=== PATIENT | male | born 1940 ===

== ENCOUNTER 2017-08-16 11:47 | Inpatient (IN) | payer MEDICARE, BC ==
--- NOTE | 2017-08-16 12:24 | ED PDOC ---
Arrival/HPI - General Chief Complaint: Altered Mental Status Time Seen by Provider: 08/16/17 12:01 Historian: Patient - History of Present Illness Narrative History of Present Illness (Text): 08/16/17 12:24 A 76 year old male whose past medical history includes, hypertension, hyperlipidemia, pacemaker, quadruple bypass / CABG, and diabetes, presents to the emergency department via ems after being found by police to be driving erratically. The patient's daughter states that they arrived from a trip to [facility] last night. She notes that the patient was complaining of chills. He notes that he has a history of urinary frequency. The patient denies headache, dizziness, abdominal pain, nausea, vomiting, diarrhea, back pain, neck pain, chest pain, shortness of breath, dyspnea on exertion, cough or any other complaint. PMD: Dr. George Zambrano MD Time/Duration: Prior to Arrival Symptom Onset: Sudden Symptom Course: Unchanged Activities at Onset: Rest, Light Context: Street, Quarantine Inspector Past Medical History - Provider Review Nursing Documentation Reviewed: Yes - Infectious Disease Hx of Infectious Diseases: None - Cardiac Hx Hypertension: Yes Hx Pacemaker: Yes Other/Comment: open heart - Psychiatric Hx Substance Use: No - Surgical History Hx Open Heart Surgery: Yes - Anesthesia Hx Anesthesia: No Family/Social History - Physician Review Nursing Documentation Reviewed: Yes Family/Social History: No Known Family HX Smoking Status: Unknown If Ever Smoked Hx Alcohol Use: No Hx Substance Use: No Allergies/Home Meds Allergies/Adverse Reactions: Allergies No Known Allergies Allergy (Verified 08/16/17 11:57) Home Medications: Home Meds Medication Instructions Recorded Confirmed Unobtainable 08/16/17 08/16/17 Review of Systems - Physician Review All systems were reviewed & negative as marked: Yes - Review of Systems Constitutional: Other (chills) Respiratory: absent: SOB, Cough Cardiovascular: absent: Chest Pain, Syncope Gastrointestinal: absent: Abdominal Pain, Diarrhea, Nausea, Vomiting Genitourinary Male: Frequency (chronic) Musculoskeletal: absent: Back Pain, Neck Pain Neurological: absent: Headache, Dizziness Physical Exam Vital Signs Reviewed: Yes Vital Signs Temp Pulse Resp BP Pulse Ox 08/16/17 12:25 98.9 F 60 18 110/55 L 100 08/16/17 12:20 104 F H 08/16/17 12:02 100.8 F H 72 18 196/99 H 95 09/16/17 11:53 100.8 F H 72 20 196/99 H 95 08/16/17 11:47 104.0 F H 70 18 196/99 H 100 Temperature: Afebrile Blood Pressure: Normal Pulse: Regular Respiratory Rate: Normal Appearance: Positive for: Well-Appearing, Non-Toxic, Comfortable Pain Distress: None Mental Status: Positive for: other (Alert and ortiented to person, place, partially to time.) Finger Stick Blood Glucose: 186 - Systems Exam Head: Present: Atraumatic, Normocephalic Pupils: Present: PERRL Extroacular Muscles: Present: EOMI Conjunctiva: Present: Normal Mouth: Present: Moist Mucous Membranes Pharnyx: Present: Normal. No: ERYTHEMA, EXUDATE Neck: Present: Normal Range of Motion Respiratory/Chest: Present: Clear to Auscultation, Good Air Exchange, Other ( sternotomy scar on chest). No: Respiratory Distress, Accessory Muscle Use Cardiovascular: Present: Murmurs Abdomen: Present: Normal Bowel Sounds. No: Tenderness, Distention, Peritoneal Signs Back: Present: Normal Inspection Upper Extremity: Present: Normal Inspection. No: Cyanosis, Edema Lower Extremity: Present: Normal Inspection. No: Edema Neurological: Present: GCS=15, CN II-XII Intact, Speech Normal Skin: Present: Warm, Dry, Normal Color. No: Rashes Psychiatric: Present: Alert, Other (Oriented to person, place, partially to time ) Medical Decision Making ED Course and Treatment: 08/16/17 12:47 Impression: A 76 year old male brought in via EMS for evaluation after the police found him driving erratically Plan: -- Brain CT -- EKG -- Chest X-Ray -- Labs -- Blood/Urine Cultures -- Urinalysis -- IV Fluids -- Reassess and disposition Progress Notes: EKG: V-paced at 83; LBBB pattern, left axis deviation. CT HEAD WITHOUT CONTRAST. Dictator : Eriberto De La Cruz MD Report Date : 08/16/2017 13:11:59 IMPRESSION: No acute intracranial hemorrhage. Mild chronic white matter ischemic changes with a few scattered chronic bilateral basal nuclei lacunar type infarcts suspected. Moderate generalized volume loss. See above discussion for additional in details and findings. 08/16/17 14:52 Patient with noted history, found to have temp of 104 here in the ED. His BP was high but never low. Total WBC is 8.4K but 9% bandemia. VBG shows elevated lactic acid; code sepsis called; patient given appropriate IVF by sepsis protocol and emperic antibiotics treatment for sepsis. CXR with no infiltrate. Urine shows blood, so will obtain CT a/p. Patient will need to be admitted, given sepsis. 08/16/17 14:56 His stated PMD is Dr. George Zambrano. Case was discussed with Dr. Hawk Zambrano for admission on his service. - Lab Interpretations Lab Results: 08/16/17 13:08 08/16/17 13:08 Lab Results 08/16/17 14:00: Influenza Typ A,B (EIA) Negative for flu a/b 08/16/17 13:08: Alcohol, Quantitative < 10 08/16/17 13:08: Sodium 134, Chloride 97 L, Potassium 3.6, Carbon Dioxide 23, Anion Gap 18, BUN 38 H, Creatinine 1.2, Est GFR ( Amer) > 60, Est GFR ( Non-Af Amer) 59, Random Glucose 175 H, Calcium 9.2, Phosphorus 2.6, Magnesium 2.1, Total Bilirubin 2.1 H, Direct Bilirubin 0.5 H, AST 92 H, ALT 81 H, Alkaline Phosphatase 69, Lactate Dehydrogenase 658, Total Creatine Kinase 134, Troponin I 0.12, NT-Pro-B Natriuret Pep 3070 H, Total Protein 7.3, Albumin 4.2, Globulin 3.1, Albumin/Globulin Ratio 1.4, Lipase 69 08/16/17 13:08: pO2 33, VBG pH 7.42, VBG pCO2 36.0 L, VBG HCO3 23.4, VBG Total CO2 24.5, VBG O2 Sat (Calc) 68.3 H, VBG Base Excess -0.7 L, VBG Potassium 3.7, Sodium 131.0 L, Chloride 97.0 L, Glucose 186 H, Lactate 3.2 H, FiO2 21.0, Venous Blood Potassium 3.7 08/16/17 13:08: PT 13.8 H, INR 1.28 H, APTT 29.6 08/16/17 13:08: WBC 8.4, RBC 4.95, Hgb 15.1, Hct 43.9, MCV 88.7, MCH 30.5, MCHC 34.4, RDW 14.0, Plt Count 110 L, MPV 9.9, Gran % 94.6 H, Lymph % (Auto) 2.6 L, [place] % (Auto) 2.7, Eos % (Auto) 0.0 L, Baso % (Auto) 0.1, Gran # 7.95 H, Lymph # 0.2 L, [place] # 0.2, Eos # 0.0, Baso # 0.01, Neutrophils % (Manual) 84 H, Band Neutrophils % 9 H, Lymphocytes % (Manual) 4 L, Monocytes % (Manual) 3, ESR 18 H 08/16/17 12:30: Urine Color Yellow, Urine Appearance Clear, Urine pH 6.0, Ur Specific [place] 1.025, Urine Protein >=300 H, Urine Glucose (UA) Negative, Urine Ketones Negative, Urine Blood Large H, Urine Nitrate Negative, Urine Bilirubin Negative, Urine Urobilinogen 1.0 H, Ur Leukocyte Esterase Negative, Urine RBC 5 - 10, Urine WBC 0 - 2, Ur Epithelial Cells 0 - 2, Urine Bacteria Few I have reviewed the lab results: Yes - RAD Interpretation Radiology Orders: 08/16/17 12:25 CHEST PORTABLE [RAD] Stat 08/16/17 12:26 Brain [HEAD W/O CONTRAST] [CT] Stat 08/16/17 14:20 ABD & PELVIS W/O PO OR IV CONT [CT] Stat - EKG Interpretation Interpreted by ED Physician: Yes Type: 12 lead EKG - Medication Orders Current Medication Orders: Vancomycin HCl 1 gm/ Sodium (Chloride) 250 mls @ 133.333 mls/hr IV STAT STA PRN Reason: Protocol Stop: 08/16/17 15:24 Last Admin: 08/16/17 14:30 Dose: 133.333 mls/hr Discontinued Medications Acetaminophen (Tylenol 325mg Tab) Confirm Administered Dose 975 mg .ROUTE .STK- MED ONE Stop: 08/16/17 12:15 Last Admin: 08/16/17 12:20 Dose: 975 mg Sodium Chloride (Sodium Chloride 0.9%) 1,000 mls @ 999 mls/hr IV .Q1H1M STA Stop: 08/16/17 13:26 Last Admin: 08/16/17 13:36 Dose: 999 mls/hr Sodium Chloride (Sodium Chloride 0.9%) 1,500 mls @ 1,500 mls/hr IV .Q1H STA Stop: 08/16/17 14:31 Last Admin: 08/16/17 14:03 Dose: 1,500 mls/hr Piperacillin Sod/Tazobactam Sod (Zosyn 3.375 In Ns 100ml) 100 mls @ 200 mls/hr IVPB STAT STA PRN Reason: Protocol Stop: 08/16/17 14:01 Last Admin: 08/16/17 13:53 Dose: 200 mls/hr - Scribe Statement The provider has reviewed the documentation as recorded by the Scribe Mamie Saxena Provider Scribe Attestation: All medical record entries made by the Scribe were at my direction and personally dictated by me. I have reviewed the chart and agree that the record accurately reflects my personal performance of the history, physical exam, medical decision making, and the department course for this patient. I have also personally directed, reviewed, and agree with the discharge instructions and disposition Disposition/Present on Arrival - Present on Arrival Any Indicators Present on Arrival: No History of DVT/PE: No History of Uncontrolled Diabetes: No Urinary Catheter: No History of Decub. Ulcer: No History Surgical Site Infection Following: None - Disposition Have Diagnosis and Disposition been Completed?: Yes Diagnosis: Sepsis Disposition: HOSPITALIZED Disposition Time: 14:00 Patient Plan: Admission Condition: SERIOUS Discharge Instructions (ExitCare): Sepsis (ED) Referrals: George Zambrano MD [Primary Care Provider] - Follow up with primary Forms: [employer] (Greek)
[2017-08-16] MEDS ORDERED: Sodium Chloride 0.9% 1,000 ML IV STA (12:26)
--- NOTE | 2017-08-16 13:13 | CT ---
PROCEDURE: CT HEAD WITHOUT CONTRAST. HISTORY: alt ms COMPARISON: None available. TECHNIQUE: Axial computed tomography images were obtained through the head/brain without intravenous contrast. Radiation dose: Total exam DLP = 725.84 mGy-cm. This CT exam was performed using one or more of the following dose reduction techniques: Automated exposure control, adjustment of the mA and/or kV according to patient size, and/or use of iterative reconstruction technique. FINDINGS: HEMORRHAGE: No acute parenchymal, subarachnoid or extra-axial hemorrhage. BRAIN: Mild chronic white matter ischemic changes. . . Questionable few tiny chronic bilateral basal nuclei lacunar type infarcts. Vascular calcifications both carotid siphons. Moderate central volume loss. VENTRICLES: No obstructive hydrocephalus. CALVARIUM: No acute calvarial fractures PARANASAL SINUSES: Mild mucoperiosteal inflammatory changes within the ethmoid air complex and to a lesser degree sphenoid sinus. There is also minimal mucosal thickening both maxillary antra right greater than left the. MASTOID AIR CELLS: Unremarkable as visualized. No inflammatory changes. OTHER FINDINGS: None. IMPRESSION: No acute intracranial hemorrhage. Mild chronic white matter ischemic changes with a few scattered chronic bilateral basal nuclei lacunar type infarcts suspected. Moderate generalized volume loss. See above discussion for additional in details and findings.
[2017-08-16 13:27] LABS: BASO # 0.01 K/mm3 (0.0-2.0); BASO % 0.1 % (0.0-3.0); GRAN # 7.95 (1.4-6.5); GRAN % 94.6 % (50.0-68.0); HEMATOCRIT 43.9 % (42.0-52.0); LYMPH # 0.2 (1.2-3.4); LYMPH % 2.6 % (22.0-35.0); MEAN CELL VOLUME 88.7 fl (80.0-105.0); MEAN CORPUSCULAR HEMOGLOBIN 30.5 pg (25.0-35.0); MEAN CORPUSCULAR HGB CONC 34.4 g/dl (31.0-37.0); MEAN PLATELET VOLUME 9.9 fl (7.0-11.0); MONO # 0.2 (0.1-0.6); MONO % 2.7 % (1.0-6.0); PLATELET COUNT 110 10^3/uL (120.0-450.0); WHITE BLOOD COUNT 8.4 10^3/ul (4.5-11.0)
[2017-08-16 13:29] LABS: VENOUS BLOOD GAS BASE EXCESS -0.7 mmol/L (0.0-2.0); VENOUS BLOOD PH 7.42 (7.32-7.43)
[2017-08-16 13:32] LABS: INR 1.28 (0.93-1.08); PARTIAL THROMBOPLASTIN TIME 29.6 Seconds (23.7-30.8)
[2017-08-16] MEDS ORDERED: Piperacillin/Tazobact 3.375 gm 100 ML IVPB STA (13:32)
[2017-08-16] MEDS ORDERED: Sodium Chloride 0.9% 1,500 ML IV STA (13:32)
[2017-08-16 13:38] LABS: ALB/GLOB RATIO 1.4 (1.1-1.8); ALKALINE PHOSPHATASE 69 U/L (38-126); ALT/SGPT 81 U/L (7-56); AST/SGOT 92 U/L (17-59); BILIRUBIN,DIRECT 0.5 mg/dL (0.0-0.4); BILIRUBIN,TOTAL 2.1 mg/dL (0.2-1.3); BLOOD UREA NITROGEN 38 mg/dL (7-21); CALCIUM 9.2 mg/dL (8.4-10.5); CARBON DIOXIDE 23 mmol/L (21-33); CHLORIDE 97 mmol/L (98-107); GFR AFRICAN-AMERICAN > 60; GLUCOSE,RANDOM 175 mg/dL (70-110); LIPASE 69 U/L (23-300); MAGNESIUM 2.1 mg/dL (1.7-2.2); PHOSPHOROUS 2.6 mg/dL (2.5-4.5); POTASSIUM 3.6 mmol/L (3.6-5.0); SODIUM 134 mmol/L (132-148); TOTAL PROTEIN 7.3 g/dL (5.8-8.3)
[2017-08-16 14:01] LABS: BAND 9 % (0-2); NEUTROPHIL 84 % (50.0-70.0)
[2017-08-16 14:07] LABS: URINE APPEARANCE CLEAR (CLEAR); URINE BILIRUBIN NEGATIVE (NEGATIVE); URINE BLOOD LARGE (NEGATIVE); URINE COLOR YELLOW (YELLOW); URINE GLUCOSE (UA) NEGATIVE (NEGATIVE); URINE KETONE NEGATIVE (NEGATIVE); URINE LEUKOCYTE ESTERASE NEGATIVE Leu/uL (NEGATIVE); URINE PROTEIN >=300 mg/dL (<30 mg/dL)
[2017-08-16 14:13] LABS: TROPONIN I 0.12 ng/mL
[2017-08-16 14:15] LABS: URINE BACTERIA FEW (NEG); URINE EPITHELIAL CELLS 0 - 2 /hpf (0-5); URINE WBC 0 - 2 /hpf (0-6)
[2017-08-16 14:39] LABS: ERYTHROCYTE SEDIMENTATION RATE 18 mm/hr (0.00-15.0)
[2017-08-16] MEDS: Insulin Reg-MEDIUM-Coverage SC SCH ×2 (16:30→22:00)
[2017-08-16 16:51] LABS: VENOUS BLOOD GAS BASE EXCESS -2.3 mmol/L (0.0-2.0); VENOUS BLOOD PH 7.43 (7.32-7.43)
--- NOTE | 2017-08-16 17:40 | RAD ---
HISTORY: Sepsis Patient COMPARISON: No prior. FINDINGS: LUNGS: Low lung volumes crowded bronchovascular markings and mild bibasilar atelectasis. Both hilar regions are somewhat prominent in appearance likely due to low lung volumes and crowded markings as well. . . PLEURA: No significant pleural effusion identified, no pneumothorax apparent. CARDIOVASCULAR: Sternotomy wires are present. Bipolar pacemaker noted. Heart appears mildly enlarged. OSSEOUS STRUCTURES: No significant abnormalities. VISUALIZED UPPER ABDOMEN: Normal. OTHER FINDINGS: None. IMPRESSION: Low lung volumes crowded bronchovascular markings and mild bibasilar atelectasis. Both hilar regions are somewhat prominent in appearance likely due to low lung volumes and crowded markings as well. . .
--- NOTE | 2017-08-16 17:51 | CT ---
PROCEDURE: CT abdomen and pelvis dated 08/16/2017. HISTORY: Hematuria. Sepsis COMPARISON: None. TECHNIQUE: Contiguous axial images of the abdomen and pelvis. Oral contrast was administered. No IV contrast given. Coronal and Sagittal reformats generated. Radiation dose: Total exam DLP = 745.74 mGy-cm. This CT exam was performed using one or more of the following dose reduction techniques: Automated exposure control, adjustment of the mA and/or kV according to patient size, and/or use of iterative reconstruction technique. FINDINGS: LOWER THORAX: Mild bibasilar atelectasis. No evidence of effusion or basilar pneumothorax Heart is enlarged. No significant pericardial effusion. LIVER: The liver is mildly enlarged measuring nearly 20 cm in CC dimension. No obvious hepatic mass collection or calcification. GALLBLADDER AND BILE DUCTS: Suspect intraluminal gallbladder sludge PANCREAS: The pancreas is atrophic and fatty replaced. No obvious pancreatic mass collection or calcification SPLEEN: Spleen exhibits normal size and attenuation pattern without mass collection or calcification. ADRENALS: No adrenal lesions. KIDNEYS AND URETERS: Kidneys demonstrate relatively symmetric size. No evidence of nephrolithiasis or hydronephrosis. Infiltration changes and what could represent a small amount of fluid in the perinephric fat noted nonspecific. BLADDER: Urinary bladder is incompletely distended. No intraluminal urinary bladder calculi. REPRODUCTIVE: Prostate is enlarged measuring approximate 6.1 cm in transverse dimension. This is likely due to BPH however correlation with PSA recommended. Prostate gland encroaches into the floor of the urinary bladder of. Possibility of wall thickening of the floor urinary bladder cannot be excluded. Clinical correlation recommended. APPENDIX: The appendix not seen with complete certainty however what could represent the appendix best identified on axial image number [id number] and coronal image number [id number]. BOWEL: Evaluation of the bowel is limited due to the lack of oral contrast. Stomach is incompletely distended which presumably accounts for thick-walled appearance. Visualized loops of small bowel exhibit normal contour and caliber. No evidence acute mechanical small bowel obstruction. The scattered colonic diverticula seen along the sigmoid colon however no definitive radiographic evidence of acute diverticulitis. PERITONEUM: No gross free intraperitoneal air. No evidence of free or loculated fluid collections. LYMPH NODES: Few small nonspecific retroperitoneal lymph nodes. VASCULATURE: Vascular calcifications of the abdominal aorta and iliac arteries as well as major branch vessels. No evidence of aneurysm. BONES: Chronic appearing anterior wedge compression deformity of the superior L2 endplate. Mild multilevel degenerative spondylosis of the lower thoracic and lumbar spine. OTHER FINDINGS: None. IMPRESSION: Hepatomegaly. Suspect intraluminal gallbladder sludge. Enlarged prostate gland encroaches into the floor of the urinary bladder. This is likely due to BPH however correlation with PSA suggested. Note that the possibility of a wall lesion along the floor urinary bladder cannot be excluded. Mild infiltration changes and what appears represent a tiny amount of fluid within the perinephric fat bilaterally nonspecific. Scattered colonic diverticula however no radiographic L2 segment. Evidence of acute diverticulitis. Chronic anterior wedge deformity superior endplate
[2017-08-16 18:38] VITALS: BMI 27.8
[2017-08-16] MEDS ORDERED: Pneumococcal 23-Valent Vaccine IM ONE (18:38)
--- NOTE | 2017-08-17 01:23 | HP ---
HISTORY OF PRESENT ILLNESS: The patient is a 76-year-old man with a past medical history of CAD, status post CABG; ischemic cardiomyopathy, status post AICD; hypertension; and hyperlipidemia, who presented to [facility] after being found by police to be driving erratically. The patient had recently returned from a trip to [facility] during which time he was in his usual state of health. Shortly, upon return to the [facility], he was noted to complain of subjective fevers, chills, and rigors. The patient otherwise had no localizing symptoms. The patient did, however, endorse mild lower extremity edema as well as orthopnea and intermittent substernal chest discomfort, but denied palpitations, cough or hemoptysis. Upon arrival to the ED, he was noted to be febrile with a temperature of 104, but otherwise hemodynamically stable. Laboratory studies demonstrated a normal white blood cell count, but did demonstrate a mildly elevated lactate of 3.2 as well as an elevated BNP of 3070 and a troponin of 0.12. A CT of the head demonstrated no acute hemorrhage and the patient was started on intravenous vancomycin and Zosyn before being admitted to the telemetry [facility] for continued management of SIRS as well as congestive heart failure and non-ST elevation [place]. PAST MEDICAL HISTORY: As per HPI. Also, type 2 diabetes mellitus. PAST SURGICAL HISTORY: As per HPI. ALLERGIES: NO KNOWN DRUG ALLERGIES. MEDICATIONS: Omeprazole 40 mg p.o. daily, aspirin 81 mg p.o. daily, Lipitor 20 mg p.o. daily, hydrochlorothiazide 12.5 mg p.o. daily, Ziac 10/6.25 mg p.o. daily, fosinopril 20 mg p.o. daily, and Flomax 0.4 mg p.o. daily. FAMILY HISTORY: Noncontributory. SOCIAL HISTORY: The patient reports a former extensive tobacco use history as well as social alcohol use. He denies illicit drug abuse. REVIEW OF SYSTEMS: A 14-point review of systems is negative except as per HPI. PHYSICAL EXAMINATION: VITAL SIGNS: Temperature 98.9, pulse is 69, blood pressure 114/60, respiratory rate 18 and oxygen saturation 98% on 2 L nasal cannula. GENERAL: Elderly man appearing his stated age, in no apparent distress. HEENT: PERRL. EOMI. No scleral icterus. No conjunctival pallor. NECK: No JVD. LUNGS: Decreased breath sounds at the bases with bibasilar crackles. CARDIOVASCULAR: Regular rate and rhythm. Normal S1 and S2. ABDOMEN: Normal active bowel sounds. Soft, nontender and nondistended. EXTREMITIES: Trace to 1+ lower extremity edema bilaterally. NEUROLOGIC: Awake, alert and oriented x3. No focal motor deficits. LABORATORY DATA: WBC 8.4 with 95% neutrophils, hemoglobin 15, hematocrit 44, and platelets 110. Sodium 134, potassium 3.6, chloride 97, bicarbonate 23, BUN 38, creatinine 1.2, glucose 175. BNP 3070. Troponin 0.12. IMAGING STUDIES: 1. Chest x-ray demonstrates bilateral pulmonary venous congestion. 2. CT of the head without contrast demonstrates no acute intracranial hemorrhage, but does demonstrate mild chronic white matter ischemic changes with few scattered bilateral basal nuclei lacunar infarcts. 3. CT of the abdomen and pelvis is pending. ASSESSMENT: The patient is a 76-year-old man with multiple medical comorbidities including coronary artery disease, status post coronary artery bypass grafting; and ischemic cardiomyopathy, status post automatic implantable cardioverter-defibrillator, who presented to [facility] for evaluation after being found by police to be driving erratically and he was subsequently found to be febrile with a temperature of 104 in the emergency department as well as lactic acidosis and he was admitted to the telemetry [place] status post code sepsis and for continued management of [id number] congestive heart failure and non-ST elevation myocardial infarction. PLAN: 1. SIRS, rule out sepsis. Cultures have been obtained in the emergency department and we will await the final results. A procalcitonin level was ordered and pending. The patient received vancomycin and Zosyn in the emergency department. Dr. Madrigal of infectious disease has been consulted for further evaluation and recommendations. 2. Non-ST elevation [place]. Labs demonstrate a borderline troponin and the patient has endorsed intermittent substernal chest discomfort. He does have an extensive cardiac history and Dr. Khan of cardiology has been consulted for further evaluation and recommendations. We will administer aspirin 325 mg p.o. stat. We will start Lopressor 25 mg p.o. b.i.d. We will cycle cardiac enzymes x3 sets. 3. [id number] systolic heart failure exacerbation. As above, Dr. Khan of cardiology has been consulted for further evaluation and recommendations. We will order a repeat transthoracic echocardiogram. Continue to monitor strict in's and out's. 4. Ischemic cardiomyopathy, status post AICD. Continue with care as above. 5. Hypertension. Blood pressure remained stable. Continue with Lopressor 25 mg p.o. b.i.d. 6. Hyperlipidemia. Continue with Lipitor 20 mg p.o. daily. A repeat lipid panel is pending. 7. BPH. The patient is on Flomax 0.4 mg p.o. daily at home. We will repeat PSA level. 8. Type 2 diabetes mellitus. The patient has a reported history of diabetes, but he is not on any medications. We will check hemoglobin A1c. We will monitor fingersticks q.a.c. and at bedtime and start low-dose insulin sliding scale for coverage. 9. Prophylaxis. GI prophylaxis not indicated as the patient is eating. We will start Venodyne for DVT prophylaxis. CODE STATUS: Full code. Aurelio Zambrano MD MTDD
[2017-08-17 06:47] LABS: GRAN # 6.39 (1.4-6.5); GRAN % 88.9 % (50.0-68.0); HEMATOCRIT 38.4 % (42.0-52.0); LYMPH # 0.5 (1.2-3.4); LYMPH % 6.5 % (22.0-35.0); MEAN CELL VOLUME 88.5 fl (80.0-105.0); MEAN CORPUSCULAR HEMOGLOBIN 29.5 pg (25.0-35.0); MEAN CORPUSCULAR HGB CONC 33.3 g/dl (31.0-37.0); MEAN PLATELET VOLUME 9.7 fl (7.0-11.0); MONO # 0.3 (0.1-0.6); MONO % 4.6 % (1.0-6.0); RED CELL DISTRIBUTION WIDTH 14.1 % (11.5-14.5); WHITE BLOOD COUNT 7.2 10^3/ul (4.5-11.0)
[2017-08-17 07:09] LABS: ALB/GLOB RATIO 1.1 (1.1-1.8); ALKALINE PHOSPHATASE 55 U/L (38-126); ALT/SGPT 82 U/L (7-56); AST/SGOT 85 U/L (17-59); BILIRUBIN,TOTAL 1.6 mg/dL (0.2-1.3); BLOOD UREA NITROGEN 31 mg/dL (7-21); CALCIUM 8.1 mg/dL (8.4-10.5); CARBON DIOXIDE 24 mmol/L (21-33); CHLORIDE 100 mmol/L (95-110); CHOLESTEROL 99 mg/dL (130-200); GFR AFRICAN-AMERICAN > 60; GLUCOSE,RANDOM 122 mg/dL (70-110); POTASSIUM 3.4 mmol/L (3.6-5.0); SODIUM 134 mmol/L (132-148); TOTAL PROTEIN 5.9 g/dL (5.8-8.3)
[2017-08-17 08:05] LABS: PROSTATE SPECIFIC ANTIGEN 11.7 ng/mL (0.00-2.5); THYROID STIMULATING HORMONE 1.19 mIU/mL (0.46-4.68)
[2017-08-17] MEDS ORDERED: Vancomycin 1gm in NS 250ml 1 GM/250 ML BAG IVPB SCH (09:00)
[2017-08-17] MEDS: Meropenem 1g/NS 100mL IVPB 1 GM/100 ML PIGGYBACK IVPB SCH ×2 (09:31→15:03)
--- NOTE | 2017-08-17 11:24 | CON ---
DATE: 08/17/2017 LOCATION: The patient is seen earlier today in 264, bed 2. CHIEF COMPLAINT: Weakness, it is written that the patient has change of mental status in the emergency room; however, the patient complained of fevers and chills times several days to me. HISTORY OF PRESENT ILLNESS: This is a 76-year-old male who recently returned from [facility] for vacationing. He is originally from [facility] with history of hypertension, high cholesterol, and coronary artery disease. He states that he had fevers and chills. The patient also had a history of coronary artery bypass graft and a pacemaker. The pacemaker was placed in 2011. He denies any headaches. He does say he did have fever and chills. He has cough and mild shortness of breath. No dysuria or frequency. No rash. No new joint pain. PAST MEDICAL HISTORY: Significant for hypertension, coronary artery disease, high cholesterol, he is hard of hearing from 1 year, and he is an ex-smoker. He also has BPH. PAST SURGICAL HISTORY: Significant for pacemaker in 2011 and coronary artery bypass graft in 2008. ALLERGIES: THE PATIENT HAS NO KNOWN ALLERGIES. MEDICATIONS AT HOME: Include omeprazole, hydrochlorothiazide, Lipitor, and aspirin. PHYSICAL EXAMINATION: GENERAL: He is awake. He is alert. He is able to answer questions appropriately. VITAL SIGNS: Temperature 98.5, T-max 104, blood pressure is 180/105, respiratory rate of 20, and heart rate is 74, it was up to 96. HEENT: Unremarkable. NECK: Supple. LUNGS: Decreased breath sounds. HEART: Normal S1 and S2. ABDOMEN: Soft and nontender. No rebound or guarding. LABORATORY DATA: Reveals a white count of 8.4, hemoglobin of 15, and platelets of 110. Granulocytosis 94%, the patient has 9% bandemia, sedimentation rate of 18, and coagulation is noted. Oxygenation is noted. Blood gases are noted. Chemistries reveal LFTs to be elevated. Troponin is 0.21. PSA is 11.7. Urinalysis reveals 0 to 2 WBCs, greater than 300 protein, and alcohol quantity is less than 10. Influenza serology is negative. Microbiology is pending. The patient had a chest x-ray, bronchovascular markings, mild bibasilar atelectasis, low volume, and solid markings was read by Dr. Eriberto Torres. The patient also had a CAT scan of the abdomen and pelvis, bibasilar atelectasis was seen, hepatomegaly, suspect intraluminal gallbladder sludge and enlarged prostate. ASSESSMENT AND PLAN: A 76-year-old [place] male who just recently returned from [place] with a history of hypertension, benign prostatic hyperplasia, coronary artery disease, high cholesterol, ischemic cardiomyopathy with history of coronary artery bypass graft and pacemaker, type 2 diabetes as written by Dr[address] Aurelio Zambrano presents with fever of 102, tachycardia, and systemic inflammatory response syndrome who had a community-acquired pneumonia versus gallbladder disease versus pyelonephritis, although urinalysis is not indicative of that in the setting of a non-ST elevation myocardial infarction must rule out bacteremia from the pacemaker. The patient's procalcitonin is elevated for 16.63 bacterial pneumonia and the patient's EKG is not read, no report on EKG, probable community-acquired pneumonia and sepsis in the patient with non-ST elevation must rule out bacteremia from a pacemaker, although it is an old pacemaker and now we will treat the patient with meropenem. The patient was given a dose of vancomycin and pending blood culture and urine culture. We will also give vancomycin. I will make further recommendations upon availability of initial results. We will also start the patient on p.o. doxycycline for atypical and less common infections. Ellis Madrigal MD
[2017-08-17 12:04] VITALS: RESP 20
[2017-08-17] MEDS: Insulin Reg-MEDIUM-Coverage SC SCH ×2 (12:16→17:13)
--- NOTE | 2017-08-17 13:43 | CARD ---
APPROVED REPORT EKG Measurement Heart [id number] <Conclusion> AV sequential or dual chamber electronic pacemaker
--- NOTE | 2017-08-17 13:47 | CARD ---
APPROVED REPORT EKG Measurement Heart [id number] <Conclusion> AV sequential or dual chamber electronic pacemaker
[2017-08-17 18:06] VITALS: BP 153/80; PULSE 68; TEMP 98.6; O2SAT 99
--- NOTE | 2017-08-17 20:23 | CP.PCM.PN ---
Subjective - Date & Time of Evaluation Date of Evaluation: 08/17/17 Time of Evaluation: 20:03 - Subjective Subjective: called by nurse to see pt is c/o generalized body pain including the cp , pt is admitted for sepsis,suspected pneumonia and fever and chills , pt has hx of DM.HTN,and hyper lipidemia.pt ,s bp is 163/86.HR is 68.family is at bed side and translating the pt who speaks malay. pt has pacemaker and and EKG done last nightshows pacemaker rythm and troponine was 0> .dr patten was informed about it. Objective - Vital Signs/Intake and Output Vital Signs (last 24 hours): Temp Pulse Resp BP Pulse Ox 98.6 F 68 20 153/80 H 99 08/17/17 18:06 08/17/17 18:06 08/17/17 18:06 08/17/17 18:06 08/17/17 18:06 - Medications Medications: Current Medications Acetaminophen (Tylenol 325mg Tab) 650 mg PO Q6H PRN PRN Reason: Fever >100.4 F Last Admin: 08/17/17 11:03 Dose: 650 mg Atorvastatin Calcium (Lipitor) 20 mg PO DAILY [facility] Last Admin: 08/17/17 09:31 Dose: 20 mg Doxycycline Hyclate (Doryx) 100 mg PO Q12 MARY PRN Reason: Protocol Stop: 08/26/17 10:01 Last Admin: 08/17/17 09:31 Dose: 100 mg Meropenem 1g/NS 100mL IVPB (Meropenem 1g/Ns 100ml Ivpb) 1 gm in 100 mls @ 100 mls/hr IVPB Q8 MARY PRN Reason: Protocol Stop: 08/27/17 08:52 Last Admin: 08/17/17 15:03 Dose: 100 mls/hr Vancomycin HCl (Vancomycin 1gm) 1 gm in 250 mls @ 167 mls/hr IVPB Q12H MARY PRN Reason: Protocol Stop: 08/26/17 09:01 Last Admin: 08/17/17 11:04 Dose: 167 mls/hr Insulin Human Regular (Humulin R Med) 0 units SC ACHS MARY PRN Reason: Protocol Last Admin: 08/17/17 17:13 Dose: Not Given Metoprolol Tartrate (Lopressor) 25 mg PO BID [facility] Last Admin: 08/17/17 09:31 Dose: 25 mg Tamsulosin HCl (Flomax) 0.4 mg PO DAILY MARY Last Admin: 08/17/17 09:31 Dose: 0.4 mg Tramadol HCl (Ultram) 50 mg PO Q6H PRN PRN Reason: Pain, moderate (4-7) - Labs Labs: 08/17/17 06:00 08/17/17 06:00 PT 13.8 Seconds (9.9-11.8) H 08/16/17 13:08 INR 1.28 (0.93-1.08) H 08/16/17 13:08 APTT 29.6 Seconds (23.7-30.8) 08/16/17 13:08 - Constitutional Appears: Other (pt is mildly sob.) - Head Exam Head Exam: NORMOCEPHALIC - Eye Exam Eye Exam: PERRL Pupil Exam: PERRL - ENT Exam ENT Exam: Mucous Membranes Moist - Neck Exam Neck Exam: Full ROM - Respiratory Exam Respiratory Exam: Clear to Ausculation Bilateral - Cardiovascular Exam Cardiovascular Exam: RRR, +S1, +S2 Additional comments: HR IS 68. - GI/Abdominal Exam GI & Abdominal Exam: Soft - Neurological Exam Neurological Exam: Alert, Awake, Oriented x3 - Psychiatric Exam Psychiatric exam: Depressed - Skin Skin Exam: Normal Color Assessment and Plan - Assessment and Plan (Free Text) Assessment: UNCONTROLLED HTN. SEPSIS /GENERALIZED BODY PAIN INCLUDING CP. hx of htn DM, CAD. sob ?pulmonary embolism. Plan: CLONIDINE O.1 MG X1 STAT. CARDIAC ISO STAT. ct angio stat. PT ,S fAMILY WANTS TO SIgn THE PT OUT and wants to take the pt to another hospital. NBI , PER FAMILY THE WAS TREATED BEFORE THERE. explained the pt about the risk of leaving , heart attack .also pt was explained we have ordered some more tests . pt ,s family still wants to take the pt to other facility.
--- NOTE | 2017-08-18 21:07 | DS ---
ADMITTING DIAGNOSES: Sepsis, non-ST elevation myocardial infarction, acute on chronic systolic heart failure exacerbation. DISCHARGE DIAGNOSES: Sepsis, non-ST elevation myocardial infarction, acute on chronic systolic heart failure exacerbation. SECONDARY DIAGNOSES: Ischemic cardiomyopathy s/p AICD, hypertension, hyperlipidemia, benign prostatic hypertrophy. CONSULTATIONS: Dr. Madrigal (infectious disease), Dr. Khan (cardiology). HISTORY OF PRESENT ILLNESS: The patient is a 76-year-old man with past medical history of CAD s/p CABG, ischemic cardiomyopathy s/p AICD, hypertension and hyperlipidemia, who presented to [facility] after being found by police to be driving erratically. The patient recently returned from a trip to [facility] during which time he was in his usual state of health. Shortly upon returned to [facility] he was noted to complain of subjective fevers, chills and rigors. He also complained of pedal edema and 2-3 pillow orthopnea associated with intermittent substernal chest discomfort. Upon arrival to the ED he was noted to be febrile with a temperature of 104 but otherwise hemodynamically stable. Laboratory studies demonstrated a normal white blood cell count but did demonstrate an elevated BNP of 3070 and a troponin of 0.12. The patient was subsequently admitted to the telemetry [facility] for continued management of non-ST elevation MS, acute on chronic systolic heart failure exacerbation and sepsis. HOSPITAL COURSE: Upon admission to the telemetry [facility] the patient was evaluated by Dr. Madrigal of infectious disease and intervenous antimicrobials were initiated. The patient was also pending evaluation by Dr. Khan of cardiology. Over the next several hours the patient was noted to develop increased rigors and myalgias, which initially responded to Tylenol. Several hours later the patient 's symptoms had recurred and the family was concerned about the patient's overall clinical condition. They were advised that the patient had multiple active medial issues which were being treated, including Staph aureus bacteremia , and it was advised that this may be contributing his chills and rigors. Despite thoroughly explaining his multiple ongoing medical issues and the need for continued treatment, the patient's daughter wanted to sign the patient out AMA so as to bring him to [facility] for continued management. She was again explained the risks of signing her father out AMA given his frail clinical condition however, after expressing understanding of the risks, she still wanted to sign the patient out AMA and as such she did so. CONDITION: Fair. DISPOSITION: The patient signed out AMA. Aurelio Zambrano MD KIM
== END 2017-08-17 20:48 | disposition left against medical advice (07) | DRG 871 ==
LOC: ED 11:47 → ERH 14:35 → 2RNO 16:08
PROVIDERS: ADMIT Student in an Organized Health Care Education/Training Program; ATTEND Student in an Organized Health Care Education/Training Program
DX: A41.9 Sepsis, unspecified organism (principal); I21.4 Non-ST elevation (NSTEMI) myocardial infarction; I50.23 Acute on chronic systolic (congestive) heart failure; E87.2 Acidosis; E11.9 Type 2 diabetes mellitus without complications; E78.5 Hyperlipidemia, unspecified; I25.10 Atherosclerotic heart disease of native coronary artery without angina pectoris; I25.5 Ischemic cardiomyopathy; I11.0 Hypertensive heart disease with heart failure; N40.0 Benign prostatic hyperplasia without lower urinary tract symptoms; E78.00 Pure hypercholesterolemia, unspecified; H91.90 Unspecified hearing loss, unspecified ear; Z95.1 Presence of aortocoronary bypass graft; Z95.810 Presence of automatic (implantable) cardiac defibrillator; Z87.891 Personal history of nicotine dependence